=== PATIENT | male | born 1955 | race Caucasian/White ===

== ENCOUNTER 2021-06-12 07:58 | Observation (INO) ==
--- NOTE | 2021-05-29 13:58 | PAT Medication Instructions ---
Medication Instructions Date of Service May 29, 2021 Home Medications Beta Prostate 1 dose PO BID acetaminophen 650 mg tablet,extended release 650 mg PO BID amlodipine 2.5 mg tablet 2.5 mg PO QAM aspirin 81 mg tablet,delayed release 81 mg PO QAM atorvastatin 20 mg tablet 20 mg PO QAM glucosamine-chondroitin 250 mg-200 mg tablet (Osteo Bi-Flex) 1 tab PO BID lisinopril 40 mg tablet 40 mg PO QAM potassium chloride 20 mEq tablet,extended release(part/cryst) (Klor-Con M) 20 meq PO QAM STOP taking 2 weeks before surgery Beta Prostate 1 dose PO BID glucosamine-chondroitin 250 mg-200 mg tablet (Osteo Bi-Flex) 1 tab PO BID DO NOT take the morning of surgery lisinopril 40 mg tablet 40 mg PO QAM potassium chloride 20 mEq tablet,extended release(part/cryst) (Klor-Con M) 20 meq PO QAM Take morning of surgery With a small sip of water, OTHERWISE NOTHING TO EAT OR DRINK AFTER MIDNIGHT: acetaminophen 650 mg tablet,extended release 650 mg PO BID (okay to take up to 4 hours prior to surgery if needed) amlodipine 2.5 mg tablet 2.5 mg PO QAM aspirin 81 mg tablet,delayed release 81 mg PO QAM (unless surgeon directed otherwise) atorvastatin 20 mg tablet 20 mg PO QAM Take evening before surgery acetaminophen 650 mg tablet,extended release 650 mg PO BID Other Notes If you have any questions please call us at [phone] or [phone] or [phone] or [phone]
--- NOTE | 2021-05-30 15:11 | Anesthesiology Consultation ---
Date of Service May 30, 2021 Assessment & Plan (1) Encounter for pre-operative examination: Chart Review Chart Review: Acceptable Risk for Surgery (pending surgeon ordered PCP clearance and preop Covid testing results ) and Patient seen in Pre Admission Testing -Awaiting surgeon ordered PCP clearance (done Apr 2021) Per PAT appt on 05/30/21, patient denies any recent travel or large group activities. No known Covid positive exposures or Covid related symptoms. No known Covid infection in the past 90 days. Pt is vaccinated for Covid. Preop Covid testing scheduled 06/08/21= will await results. Educated on importance of self quarantining, social distancing and wearing mask in public for the patient one week prior to surgery and after Covid testing done History Surgery Operation Date: 06/12/21 10:20 Proposed Procedures p Right Total Knee Arthroplasty - Chris Umaña MD Height/Weight Height: 5 ft 8 in Weight: 124.3 kg Allergies Allergy/AdvReac Type Severity Reaction Status Date / Time No Known Allergies Allergy Verified 05/29/21 11:01 Medications Home Medications Medication Instructions Recorded Confirmed Last Taken Beta Prostate 1 dose PO BID 05/29/21 05/29/21 Unknown acetaminophen 650 mg 650 mg PO BID 05/29/21 05/29/21 Unknown tablet,extended release amlodipine 2.5 mg tablet 2.5 mg PO QAM 05/29/21 05/29/21 Unknown aspirin 81 mg tablet,delayed 81 mg PO QAM 05/29/21 05/29/21 Unknown release atorvastatin 20 mg tablet 20 mg PO QPM 05/29/21 05/30/21 Unknown glucosamine-chondroitin 250 mg-200 1 tab PO BID 05/29/21 05/29/21 Unknown mg tablet (Osteo Bi-Flex) lisinopril 40 mg tablet 40 mg PO QAM 05/29/21 05/29/21 Unknown potassium chloride 20 mEq 20 meq PO QAM 05/29/21 05/29/21 Unknown tablet,extended release(part/cryst) (Klor-Con M) timolol 0.25 % eye drops 1 drp OPHTHALMIC (EYE) BID 05/30/21 05/30/21 Unknown Past Medical History Medical History Borderline high cholesterol Enlarged prostate Presumed per patient HTN (hypertension) Exercise / Class Metabolic Activity II 4-5 Yardwork/Stairs/Walk up hill (one flight of stairs- no chest pain or SOB ) Past Surgical History Surgical History H/O thumb surgery History of appendectomy History of right knee surgery [place] teeth removed Past Anesthesia History No Hx of Anesthesia Complications and No Family Hx of Anesthesia Complications History of PONV No Hx of PONV and No Hx of Motion Sickness Social History Smoking Status: Never smoker Do You Dip or Chew Tobacco: No Hx Alcohol Use: Yes alcohol intake frequency: holidays/special occasions only substance use type: does not use Review of Systems Patient denies chest pain, shortness of breath, dyspnea on exertion, reflux, cough, wheezing, palpitations. No hx of seizures, stroke, [place], apnea/snoring. No hx of blood clots or blood transfusions Physical Exam Vital Signs VITALS BP 119/75 P 69 TEMP 98.5 SP02 94% RESP 16 Constitutional no acute distress ENMT Mouth: no TMJ clicking Thyromental Distance: > or= 3.5 Finger Breadths (4.0) Mallampati Class: II Neck neck extension not limited Respiratory normal respiratory effort; no respiratory distress Auscultation: lungs clear to auscultation bilaterally; no wheezes Cardiovascular Rate/Rhythm: regular rate and regular rhythm Heart Sounds: no murmur Vessels: no carotid bruit Musculoskeletal Spine: no pain with cervical ROM Extremities: extremities normal to inspection Psychiatric Orientation: alert Lab Results Anesthesia Preop Results Results Anesthesia Widget: WBC 6.20 K/uL (4.8-10.8) 05/30/21 Hgb 15.4 g/dL (14.0-18.0) 05/30/21 Hct 43.9 % (42-52) 05/30/21 Plt 169 K/uL (130-400) 05/30/21 Na 140 mmol/L (136-145) 05/30/21 K 4.7 mmol/L (3.5-5.1) 05/30/21 Cl 105 mmol/L (98-107) 05/30/21 CO2 28 mmol/L (21-32) 05/30/21 BUN 19 mg/dl (6-23) 05/30/21 Creat 1.07 mg/dl (0.6-1.4) 05/30/21 Glucose Level 82 mg/dl (70-99(Fasting)) 05/30/21 PT 11.4 Seconds (9.0-12.0) 05/30/21 PTT 27.7 Seconds (21.0-31.0) 05/30/21 INR 1.1 (0.9-1.1) 05/30/21 Blood Type A Positive 05/30/21 Antibody Screen NEGATIVE 05/30/21 Testing Electrocardiogram Date: 05/30/21 Findings: + NSR @ (61bpm) and + no change from (Dec 01, 2009 per cardio) Poor data quality RBBB Chest X-Ray Date: 05/30/21 Findings: + NAD
[~2021-06-12 07:58] MED LIST: ACETAMINOPHEN 500 MG TAB PO SCH; BUPIVACAINE 0.5 % 5 MG/1 ML PF 10ML VIAL ONE; CeleBREX 200 MG CAP PO SCH; EPINEPHrine INJ 1 MG/ML AMP ONE; FAMOTIDINE 20 MG TAB PO SCH; GABAPENTIN 600 MG DOSE PO SCH; LR 500ML BOLUS, THEN 15ML/HR IV SCH; LR 60ML/HR IV SCH; METOCLOPRAMIDE HCL 10 MG TABLET PO SCH; MIDAZOLAM HCL 1 MG/ML 2ML VIAL ONE; ROPIVACAINE 0.5% 5 MG/ML 30 ML VIAL ONE; ROPIVACAINE 0.5% HCL/PF 150 MG, BUPIVACAINE 0.75% MPF 20 ML, EPINEPHrine 0.15 MG, Ketor... INFIL SCH; TRANEXAMIC ACID 1,000 MG **IV Intra-op IV SCH; TRANEXAMIC ACID 1,000 MG **IV Pre-op IV SCH; cloNIDine HCL 0.1 MG/24 HR TRANSDERM SYS TD SCH; dexAMETHasone 4 MG TAB PO SCH; fentaNYL citrate 100 MCG/2 ML VIAL ONE; oxyCODONE HCL 10 MG TABCR (OxyCONTIN) PO SCH; traMADol HCL 50 MG TABLET PO SCH
[2021-06-12] MEDS ORDERED: ONDANSETRON INJ 2 MG/ML 2 ML VIAL ONE (09:39)
[2021-06-12] MEDS ORDERED: PROPOFOL IV EMULSION 10 MG/ML 20 ML VIAL IV ONE (09:39)
--- NOTE | 2021-06-12 10:24 | History & Physical Bridge Note ---
Date of Service June 12, 2021 History & Physical Bridge Note I have examined the patient, reviewed the History & Physical and in the interval since the performance of the History & Physical I have noted the following changes of clinical significance: no changes noted
[2021-06-12] MEDS ORDERED: ORTHO JOINT ANESTHETIC ONE (10:55)
[2021-06-12] MEDS ORDERED: VANCOMYCIN HCL 1000MG/20ML VIAL ONE (10:56)
[2021-06-12] MEDS ORDERED: ceFAZolin 330 MG/ML 1 GM VIAL ONE (10:56)
[2021-06-12] MEDS ORDERED: ePHEDrine sulfate 50 MG/ML SYR ONE (11:41)
[2021-06-12] MEDS ORDERED: fentaNYL citrate 100 MCG/2 ML VIAL ONE (11:50)
[2021-06-12] MEDS ORDERED: ONDANSETRON INJ 2 MG/ML 2 ML VIAL IV PRN ×2 (12:07→18:00)
[2021-06-12] MEDS ORDERED: PROMETHAZINE HCL 12.5 MG in SODIUM CHLORIDE 0.9% 50 ML IV PRN (12:07)
[2021-06-12] MEDS ORDERED: ATROPINE SULFATE 0.1 MG/ML 10ML SYR IV PRN (12:07)
[2021-06-12] MEDS ORDERED: FLUMAZENIL 0.1 MG/1 ML 10 ML VIAL IV PRN (12:07)
[2021-06-12] MEDS ORDERED: HYDROmorphone INJ 1 MG/ML SYRINGE IV PRN (12:07)
[2021-06-12] MEDS ORDERED: NALOXONE HCL 0.4 MG/1 ML VIAL/CARP IV PRN ×2 (12:07→18:00)
[2021-06-12] MEDS ORDERED: ePHEDrine sulfate 50 MG/ML AMP IV PRN (12:07)
[2021-06-12] MEDS ORDERED: HYDROmorphone INJ 2 MG/ML SYR/VIAL ONE (12:59)
--- NOTE | 2021-06-12 14:51 | Operative Report ---
Post Operative Report Pre & Post Diagnosis Operation Date: 06/12/21 10:20 Pre-Op Diagnosis: Right Knee Osteoarthritis Post-Op Diagnosis: Right Knee Osteoarthritis I identified the patient and participated in the time-out.: Yes Procedure Operation Date: 06/12/21 10:20 Actual Procedures p Right Total Knee Arthroplasty(Right) - Chris Umaña MD Surgeon Davie Umaña Carroter Teofilo Verde MD, Roxanne CASTILLO Estimated Blood Loss 5 Findings Consistent with Post-Op Diagnosis Consistent with post op diagnosis. Specimens No specimens Description of Procedure I participated in prepping dressing and assisted Dr. Umaña during the procedure. Please see Dr. Umaña note. I attest to the content of the Intraoperative Record and any orders documented therein. Any exceptions are noted below. Supervising Physician Co-Signing Physician Notes Dr. Umaña
--- NOTE | 2021-06-12 14:55 | Operative Report ---
Post Operative Report Pre & Post Diagnosis Operation Date: 06/12/21 10:20 Pre-Op Diagnosis: Right Knee Osteoarthritis Post-Op Diagnosis: Right Knee Osteoarthritis I identified the patient and participated in the time-out.: Yes Procedure Operation Date: 06/12/21 10:20 Actual Procedures p Right Total Knee Arthroplasty(Right) - Chris Umaña MD Surgeon Chris Umaña MD Pharmacy Tech Customer Service Zahraa CASTILLO and Ramez Verde fellow Estimated Blood Loss 5 Findings Consistent with Post-Op Diagnosis Specimens Resected bone and soft tissue Drains None Anesthesia Type General Regional Complications none Disposition Accompanied Patient To Recovery: No Disposition: Recovery Room Indications Sergio is 66. He has significant arthritis of both of his knees and wishes to have the right knee replaced. Nonsurgical treatments have not been effective in relieving his pain. Description of Procedure Informed consent obtained. Patient identified. He identified the operative site as the right knee. I marked with my initials. Preoperative surgical timeout was performed. Preop dose of IV antibiotics was given. He was taken to the operating room positioned supine on the OR table. TXA was given. A bump was placed under the right hip. A tourniquet on the right thigh. A padded post under the right calf. The leg was prepped and draped in usual sterile fashion. DVT prophylaxis intraoperatively with mechanical devices and postop early mobility mechanical devices and Lovenox. The exam under anesthesia revealed range of motion 0/5/1 120 degrees flexion. He had 1+ MCL laxity the knee was otherwise stable. Limb exsanguinated with the Esmarch. Tourniquet Fleta 250 mmHg. A midline longitudinal incision was made followed by medial parapatellar arthrotomy. The retropatellar fat pad supra femoral fat pad were resected. The synovial reflection in the lateral gutter was released. The medial release was performed in an extensile fashion. The knee was then flexed and the cruciate ligaments were excised. With some difficulty due to cupping and medial wear the knee was then subluxated. The menisci were removed. The lateral meniscus was intact. The medial meniscus was deficient. There were notch osteophytes which were removed and osteophytes throughout the knee particularly on the femur both sides medial greater than lateral and medial and posterior medial. There was posterior medial wear with bone loss of the several millimeters. The lateral margin of the tibial plateau was exposed. The tibia was subluxated. A commuter pilot hole was drilled in front of the tibial spines and thus just between them. An image of intramedullary alignment florencio was inserted however the florencio could not be inserted more than about one third of its depth. I was reluctant to hammer it for fear of getting it incarcerated. Clinically looked well aligned and in good position. There was no known block on the tibia that would prevent it from going in. I changed to the extra medullary alignment florencio. I fixed this to the ankle aligned with the second ray and the intermalleolar axis. It was then set to resect 10 mm off of the lateral side. The guide was pinned in the place. The knee was placed into full extension and the cut was in slight varus. I then went ahead and pulled out the lateral pin moved it distally slightly and repinned it with the guide in place and this then corrected the malalignment. I put that pin through a different hole. The slope was parallel to the tibia. The florencio bisecting the transmalleoli or axis and intersected the second ray with the foot in the plantigrade position. I then went ahead and move the block down to resect 2 more millimeters of bone so that we had a 2 mm skim cut medially and 10 mm laterally. I rechecked the alignment as well. This was a 0 degree cutting block. Due to the prominence of the tibial tubercle and the marked slope of the tibia we had to be careful to protect the patellar tendon. This cut was made but I could not get as far lateral as necessary and then I went ahead and freehanded that cut and then cleaned it and beveled it with a rasp. Extra bone removed with a rongeur. I then checked to make sure that it was flat side to side front to back. I did a recut on the medial side. There was some 1 to 2 mm defect may be 1 to 1-1/2 cm long by half centimeter wide to be dealt with. After doing shift and resect technique this was largely minimized and then just filled with cement. The defect was drilled with a pin. This was posterior medial. Patient had hard bone throughout. Tibia sized to a 4. I turned my attention to the femur. A guide hole was drilled into the distal femur just above the PCL and likewise similar to the tibia it was very difficult to get the intramedullary florencio in place. I hit with a couple blows of the mallet and I was able to advance it then by hand. The guide was set 6 degree valgus 14 mm thick cut because of the flexion contracture. That guide was pinned in the place. I checked to make sure that it was distal to the epicondyles and collateral ligaments. The distal femoral cut was then made. The extension gap was a asymmetrically tight 10. I then went ahead and marked out the epicondylar axis and applied the distal femoral cutting guide. It was between 4 and 5. I sized for a 5 pinned it for a 5 and used a 4 cutting block to half size it. The collateral ligaments were protected. A small osteophyte avulsed posterior laterally without any compromise. This was about half by 1 cm. Posterior osteophytes particularly medially more so than laterally were excised. No notching was performed. The box cutting guide was applied and lateralized and that cut was made. Posterior osteophytes removed. The flexion gap was a symmetric 10. The extension gap after resection of the posterior osteophytes and little bit more posterior medial release was a symmetric 10. The knee was fully extended and in neutral alignment. The trial femur was applied followed by the trial tibia and a 10 mm thick polyethylene spacer. The knee was fully extended and stable at 0 and 90 without any gapping. There was 1+ LCL laxity in mid position and no MCL laxity in mid position. Patellar tracking was fine. Attention was turned to the patella which measured 26 mm in thickness. 38mm patella was selected. The guide was set to preserve 17 mm of bone. The cut was made and the residual patellar thickness was 16. The paddle was distal lysed and medialized and aligned to the axis of the knee and the lug holes were then drilled and patellar tracking was fine with the implant in place. At this time I let the tourniquet down at 112 minutes. The back the knee was injected with Ortho joint mix and the canal holes were plugged. After the tourniquet was down for 15 minutes we reexsanguinated with a spacer block in place and then pulsatile lavage. I drilled some pinholes into the posterior chamfer cuts due to the dense bone there on both sides as well as on the medial side of the tibia where the active sclerotic bone was. 2 bags of Simplex P cement were mixed. Smears were placed on the posterior condyles. While in a doughy state the femur tibia and patella were cemented in place and held in full extension until the cement had dried. Tourniquet is let down after 20 minutes of inflation. Meticulous hemostasis performed copious irrigation was done. The Ortho joint mix was injected throughout the rest of the knee and we inspected the back of the knee for cement removing it as encountered. The the after mentioned laxity profile applied. The final polyethylene insert was applied. The extensor mechanism was closed above the equator the patella with interrupted #2 FiberWire. Below the equator with running and interrupted #1 Vicryl. The FiberWire was [id number] stitches. [place] assisted flexion with extensor mechanism closed was 120 degrees. The skin was then closed with 0 and 2-0 Vicryl and todd. The leg was cleaned wet and dry sponges and a bulky soft sterile dressing was applied Xeroform 4 x 4's ABD soft wrap and full-length Dixon and knee immobilizer. Patient was awakened without difficulty from anesthesia taken to recovery in stable condition. The resected bone and soft tissue were sent for specimen. There were no complications. Counts were correct blood loss is estimated to be 5 cc. And additional dose of TXA was given. He will be rehabilitated according to standard total knee protocol. Weightbearing as tolerated. Lovenox. Postop antibiotics. Components inserted were the [employer] PFC Sigma rotating platform knee size 4 right posterior stabilized femur and a size 4 mobile-bearing keeled tibial tray and a size 4 x 10 mm thick polyethylene insert and a 38 mm 3 peg oval dome patella. There was extensive bone loss in the medial compartment with wear on both sides over areas that were 2 x 3 to 4 cm in size. Eburnated full-thickness loss of cartilage with eburnated bone. I attest to the content of the Intraoperative Record and any orders documented therein. Any exceptions are noted below.
--- NOTE | 2021-06-12 15:29 | XRay Report ---
XR knee RT 1 or 2V routine CLINICAL HISTORY: Surgical Post Op. Status post total knee replacement COMPARISON STUDY: No previous studies for comparison. TECHNIQUE: 2 right knee views FINDINGS: The patient is status post total knee replacement. The prosthetic components are in anatomi c alignment with no acute abnormality seen. Air is present within the soft tissues from the procedure . Skin todd are seen anteriorly. IMPRESSION: 1. Status post total knee replacement. ACT 112: Negative or not required by law. Electronically signed by: Vikram Weiss M.D. 06/12/2021 3:27 PM
[2021-06-12] MEDS: fentaNYL citrate 100 MCG/2 ML VIAL IV PRN ×4 (15:49→16:03)
--- NOTE | 2021-06-12 17:20 | Progress Notes ---
DATE OF SERVICE: 06/12/2021. Seen in PACU. Pain is controlled. Vital signs stable. Surgical findings were discussed. X-rays lo ok fine. 1+ dorsalis pedis intact sensation, 5-/5 ankle and toe plantar flexion, dorsiflexion, inver radha and eversion strength. Dressing clean and dry. Continue routine postop management. Job ID: [id number]
[2021-06-12] MEDS: CHECK CLONIDINE PATCH PLACEMENT SCH ×3 (17:56→17:59)
[2021-06-12] MEDS ORDERED: oxyCODONE HCL IR 5 MG TAB (IMMEDIATE RELEASE) PO PRN (18:00)
[2021-06-12] MEDS ORDERED: traMADol HCL 50 MG TABLET PO PRN (18:00)
[2021-06-12] MEDS ORDERED: bisacodyL 10 MG SUPP PR PRN (18:00)
[2021-06-12] MEDS ORDERED: MAGNESIUM HYDROXIDE SUSP 30 ML UDC PO PRN (18:00)
[2021-06-12] MEDS ORDERED: METOCLOPRAMIDE HCL INJ 5 MG/ML 2 ML VIAL IV PRN (18:00)
[2021-06-12] MEDS ORDERED: HYDROmorphone INJ 0.5 MG/0.5 ML SYR IV PRN (18:00)
[2021-06-12] MEDS ORDERED: hydrALAZINE HCL 20 MG/ML VIAL IV PRN (18:00)
[2021-06-12] MEDS ORDERED: TAMSULOSIN HCL 0.4 MG CAP PO PRN (18:00)
[2021-06-12] MEDS: SODIUM CHLORIDE 0.9% 1000ML 1,000 ML IV SCH (20:09)
[2021-06-12] MEDS: KETOROLAC 30 MG/ML VIAL IV SCH (20:10)
[2021-06-12] MEDS: ceFAZolin 2000MG 2,000 MG/15 ML SYR IV SCH (20:10)
[2021-06-12] MEDS: ACETAMINOPHEN 500 MG TAB PO SCH (20:10)
[2021-06-12] MEDS: TIMOLOL MALEATE 0.25% OP SOLN 5 ML BTL OP SCH (20:11)
[2021-06-12] MEDS: DOCUSATE SODIUM 100 MG CAP PO SCH (20:11)
[2021-06-12] MEDS ORDERED: BETA PROSTATE PO SCH (21:00)
[2021-06-12] MEDS ORDERED: ATORVASTATIN 20 MG TAB PO SCH (21:00)
[2021-06-12] MEDS ORDERED: CeleBREX 200 MG CAP PO SCH (21:00)
[2021-06-12] MEDS ORDERED: SENNA 8.6 MG TAB PO SCH (21:00)
[2021-06-13] MEDS: KETOROLAC 30 MG/ML VIAL IV SCH ×3 (02:58→13:25)
[2021-06-13] MEDS: ceFAZolin 2000MG 2,000 MG/15 ML SYR IV SCH (03:04)
[2021-06-13] MEDS: SODIUM CHLORIDE 0.9% 1000ML 1,000 ML IV SCH (05:17)
[2021-06-13 06:04] LABS: Hematocrit (blood only) 36.7 % (42-52); Hemoglobin 12.8 g/dL (14.0-18.0); Mean Corpuscular Hemoglobin 31.7 pg (25-34); Mean Corpuscular Hgb Conc 34.9 g/dL (32-36); Mean Corpuscular Volume 90.8 fL (80-100); Platelet Count 151 K/uL (130-400); RDW Coefficient of Variation 12.9 % (11.5-14.5); RDW Standard Deviation 43.2 fL (36.4-46.3); Red Blood Count 4.04 M/uL (4.7-6.1); White Blood Count 12.74 K/uL (4.8-10.8)
[2021-06-13] MEDS: ACETAMINOPHEN 500 MG TAB PO SCH ×2 (06:04→13:29)
[2021-06-13 06:23] LABS: BUN Creatinine Ratio 19.9 (10-20); Calcium 8.6 mg/dl (8.5-10.1); Creatinine Clr Calc Pharmacy 63.4 ml/min; Est GFR (African American) 55.8 ml/min; Est GFR (Non-African American) 48.1 ml/min; Potassium 4.5 mmol/L (3.5-5.1)
[2021-06-13] MEDS ORDERED: dexAMETHasone 4 MG TAB PO SCH (08:00)
[2021-06-13] MEDS ORDERED: ENOXAPARIN INJ 30 MG/0.3 ML SYR SQ SCH (08:00)
[2021-06-13] MEDS: TIMOLOL MALEATE 0.25% OP SOLN 5 ML BTL OP SCH (08:07)
[2021-06-13] MEDS: DOCUSATE SODIUM 100 MG CAP PO SCH (08:11)
[2021-06-13] MEDS ORDERED: lisinopril 40 MG TAB PO SCH (09:00)
[2021-06-13] MEDS ORDERED: amLODIPine BESYLATE 5 MG TAB PO SCH (09:00)
[2021-06-13] MEDS ORDERED: ASPIRIN 81 MG ECTAB PO SCH (09:00)
[2021-06-13] MEDS ORDERED: POTASSIUM CHLORIDE CRTAB 20 MEQ TABCR PO SCH (09:00)
[2021-06-13] MEDS ORDERED: MULTIVITAMIN TAB PO SCH (09:00)
[2021-06-13] MEDS ORDERED: SODIUM CHLORIDE 0.9% 500 ML IV SCH (09:45)
--- NOTE | 2021-06-13 10:48 | Progress Notes ---
DATE OF SERVICE: 06/13/2021 Sergio is sitting at bedside. We saw him ambulating the schwab well. His pain is well controlled and h e reports no other problems. He is afebrile. His vital signs are stable. His urine output is a little bit low. White count 13, likely secondary to stress. Hemoglobin 13, hematocrit 37, platelets are 151. PRP is noted. His BUN and creatinine are 30 and 1.51 respectively, which is higher than baseline. On examination, the dressing is clean and dry. He is able to do a leg lift. He has 5/5 ankle and to e plantarflexion, dorsiflexion, inversion and eversion. He has 1+ dorsalis pedis and posterior tibia l pulses with intact sensation. Sergio is doing well postop day #1 from his right total knee replacement. Surgical findings were revi ewed and discussed. X-rays were reviewed. These showed good positioning of the components without e vidence of complication. If he does well with therapy and is okay with pain, he will be suitable for consideration of discharg e this afternoon. If that occurs, he will have home health nursing and PT. Nursing will draw a CBC every Friday while he is on Lovenox. They will also do a PRP for him at their first visit tomorrow. We will follow up on that and if improved, okay. If not, we may need to have him see his family doc lauren. Encouraged p.o. intake and we will start him on some normal saline until discharge. He will fo llow up as an outpatient as scheduled. We went over do's and don'ts and talked about bathing. Rest, elevate, ice. Ambulate with walker, weightbearing as tolerated. He can be out of the knee brace af ter he gets home. If there are any problems with pain, fever, swelling, or any other issues, please call the office or go to the ER. He will be on pain medication, his regular meds, Lovenox and stool softener. PROBLEM LIST: 1. Postop day #1 status post right total knee replacement. 2. Elevated BUN and creatinine. Job ID: [id number]
[2021-06-13 11:07] VITALS: BP 126/73; PULSE 63; TEMP 97.9; O2SAT 90
--- NOTE | 2021-06-14 08:44 | Discharge Summary ---
Date of Service June 14, 2021 Discharge Data Procedures Performed Operation Date: 06/12/21 10:20 Actual Procedures p Right Total Knee Arthroplasty(Right) - Chris Umaña MD Hospital Course (1) Status post total right knee replacement using cement: Patient was admitted to [facility] on June 12, 2021 after undergoing an elective right total knee arthroplasty with Dr. Umaña. His surgery was performed with spinal anesthesia and peripheral nerve blocks. He tolerated the surgery well without any intraoperative complications. Postoperative x-rays were performed on his right knee in the recovery room which showed a stable right knee prosthesis. He was allowed out of bed, weight-bear as tolerated right lower extremity with the assistance of a walker. He was also advised to use a knee immobilizer for the first 24 hours after surgery. His regular home medications were continued. He was given IV Dilaudid, oxycodone, Tylenol, tramadol, Toradol for postoperative pain control. His pain was well controlled during his inpatient stay. He tolerated a regular diet although did have a decreased appetite during his stay. His vital signs remained stable. He did have some slightly elevated blood pressures but improved with his normal medication. He did not develop any postoperative nausea, vomiting, lightheadedness, dizziness, chest pains or shortness of breath. He was given Lovenox 30 mg twice daily for DVT prophylaxis as well as SCDs, SLOANE stockings and early mobilization. He was seen and evaluated by physical therapy as well as occupational therapy and did well in rehab. He was seen by case management for disposition needs. He had a walker available for at home. He also had home health arrangements already set preoperatively. Discharge instructions were reviewed with the patient and provided to him at the time of discharge. He was given a prescription for Lovenox and oxycodone and tramadol for postoperative pain control and DVT prophylaxis. Postoperative follow-up has been scheduled. All questions were answered. He was discharged to his home in stable condition on June 13, 2021.
== END 2021-06-13 14:33 | disposition home health service (06) ==
LOC: ASU 07:58 → PACUINP 07:58 → 3E 17:37